=== PATIENT | female | born 1950 | race Caucasian/White ===

== ENCOUNTER 2017-03-27 20:35 | Emergency (ER) | payer MEDICARE, OTHER ==
[~2017-03-27] VITALS: Ht 160 cm; Wt 62.0 kg
[2017-03-27 21:45] VITALS: BP 141/84
== END 2017-03-27 21:46 | disposition home or self-care (01) ==
LOC: ED 21:30
DX: J20.9 Acute bronchitis, unspecified (principal); Z88.1 Allergy status to other antibiotic agents; Z88.2 Allergy status to sulfonamides; Z87.891 Personal history of nicotine dependence
CPT/HCPCS: 71020; 99284

== ENCOUNTER → 2017-05-04 | Outpatient (CLI) | payer MEDICARE, OTHER | END | disposition home or self-care (01) | LOC: CFH 08:06 | PROVIDERS: ATTEND Obstetrics & Gynecology Gynecology | DX: Z13.820 Encounter for screening for osteoporosis (principal); M81.0 Age-related osteoporosis without current pathological fracture; N95.1 Menopausal and female climacteric states; R92.2 Inconclusive mammogram | CPT/HCPCS: 76377; 76642; 77080 ==

== ENCOUNTER → 2017-05-11 | Outpatient (CLI) | payer MEDICARE, OTHER | END | disposition home or self-care (01) | LOC: CFH 13:31 | PROVIDERS: ATTEND Nurse Practitioner Family | DX: M54.42 Lumbago with sciatica, left side (principal); M25.552 Pain in left hip | CPT/HCPCS: 72110 ==

== ENCOUNTER → 2017-07-29 | Outpatient (CLI) | payer MEDICARE, OTHER | END | disposition home or self-care (01) | LOC: CFH 10:47 | PROVIDERS: ATTEND Radiology Diagnostic Radiology | DX: M19.072 Primary osteoarthritis, left ankle and foot (principal) ==